=== PATIENT | female | born 1955 | race Caucasian/White ===

== ENCOUNTER → 2016-04-08 | Outpatient (REF) | payer OTHER | LOC: M SFHCWAGY 13:09 | PROVIDERS: ATTEND Nurse Practitioner Women's Health | DX: Z12.4 Encounter for screening for malignant neoplasm of cervix (principal) ==

== ENCOUNTER → 2016-04-08 | Outpatient (CLI) | payer OTHER ==
--- NOTE | 2016-04-08 13:50 | REPMRS ---
Patient History The patient states she had a clinical breast exam in 03/2016. Patient is postmenopausal. No known family history of cancer. Digital Woman Screen Mammo: April 08, 2016 - Exam #: [id number] Bilateral CC and MLO view(s) were taken. Technologist: Krista Alfaro, Technologist Prior study comparison: April 07, 2015, digital woman screen mammo performed at [facility]. May 15, 2013, digital woman screen mammo performed at [facility]. April 13, 2010, bilateral bilat screen digital mammo performed at [facility]. FINDINGS: The breast tissue is almost entirely fat. There has been no change in the appearance of the mammogram from the prior studies. There is no interval development of dominant mass, architectural distortion, or clustered microcalcification typical of malignancy. ASSESSMENT: BI-RADS/ACR category 1 mammogram. Negative. Recommendation Routine screening mammogram of both breasts in 1 year (for women over age 40). This mammogram was interpreted with the aid of an FDA-approved computer-aided dectection system. Electronically Signed By: Feroz España MD 04/08/16 [id number]
== END ==
LOC: M WHC 13:00
PROVIDERS: ATTEND Nurse Practitioner Women's Health
DX: Z12.31 Encounter for screening mammogram for malignant neoplasm of breast (principal)

== ENCOUNTER → 2017-04-11 | Outpatient (REF) | payer OTHER | LOC: M SFHCWAGY 13:22 | DX: Z12.4 Encounter for screening for malignant neoplasm of cervix (principal) ==

== ENCOUNTER → 2017-04-11 | Outpatient (CLI) | payer OTHER | LOC: M WHC 13:05 | DX: Z12.31 Encounter for screening mammogram for malignant neoplasm of breast (principal) | CPT/HCPCS: 77067 ==

== ENCOUNTER → 2017-09-29 | Outpatient (CLI) | payer OTHER | LOC: M EKG 14:43 | DX: Z01.818 Encounter for other preprocedural examination (principal); E66.01 Morbid (severe) obesity due to excess calories; I10 Essential (primary) hypertension; K21.9 Gastro-esophageal reflux disease without esophagitis; F41.9 Anxiety disorder, unspecified | CPT/HCPCS: 93005 ==

== ENCOUNTER → 2017-10-09 | Outpatient (REF) | payer OTHER | LOC: M WUC 12:21 | DX: N39.0 Urinary tract infection, site not specified (principal) ==

== ENCOUNTER → 2018-06-06 | Outpatient (CLI) | payer OTHER ==
--- NOTE | 2018-06-06 14:38 | REPMRS ---
Patient History The patient states she had a clinical breast exam in 05/2018. No known family history of cancer. 3D TOMOSYNTHESIS WAS PERFORMED. Digital Woman Screen Mammo: June 06, 2018 - Exam #: [id number] Bilateral CC and MLO view(s) were taken. Technologist: Keysha Sampson, Technologist Prior study comparison: April 11, 2017, digital woman screen mammo performed at [facility]. April 08, 2016, digital woman screen mammo performed at [facility]. FINDINGS: There are scattered fibroglandular densities. There has been no change in the appearance of the mammogram from the prior studies. There is a mild amount of residual fibroglandular tissue which is fairly symmetric. There is no interval development of dominant mass, architectural distortion, or clustered microcalcification suggestive of malignancy. Assessment: BI-RADS/ACR category 1 mammogram. Negative Mammogram. Recommendation Routine screening mammogram in 1 year (for women over age 40). This mammogram was interpreted with the aid of an FDA-approved computer-aided dectection system. Electronically Signed By: Gonzales Phan MD 06/06/18 [id number]
== END ==
LOC: M WHC 13:20
PROVIDERS: ATTEND Nurse Practitioner Women's Health
DX: Z12.31 Encounter for screening mammogram for malignant neoplasm of breast (principal)

== ENCOUNTER → 2018-11-13 | Outpatient (CLI) | payer OTHER ==
--- NOTE | 2018-11-13 08:50 | REP ---
Clinical: Abnormal liver function tests. Technique: Real time perez scale ultrasound examination using curved array transducer. Findings: Liver and visualized pancreas are normal in contour, size, echogenicity without focal hepatic or pancreatic lesion identified. Evidence of prior cholecystectomy. No biliary ductal dilatation is appreciated and the common bile duct measures 6 mm diameter. The right kidney is normal in reniform shape without hydronephrosis and measures 9.7 x 4.1 x 3.6 cm. No ascites. Impression: Evidence for prior cholecystectomy Otherwise normal right upper quadrant ultrasound. Electronically Signed by Ever Dean MD 11/13/2018 08:41 A
== END ==
LOC: M RAD 07:28
PROVIDERS: ATTEND Nurse Practitioner Psychiatric/Mental Health
DX: E66.09 Other obesity due to excess calories (principal)

== ENCOUNTER → 2018-11-16 | Outpatient (REF) | payer OTHER | LOC: M LAB REF 13:22 | PROVIDERS: ATTEND Ophthalmology | DX: H02.826 Cysts of left eye, unspecified eyelid (principal) ==

== ENCOUNTER → 2019-05-08 | Outpatient (REF) | payer OTHER | LOC: M LAB REF 10:46 | PROVIDERS: ATTEND Dermatology | DX: D49.2 Neoplasm of unspecified behavior of bone, soft tissue, and skin (principal) ==

== ENCOUNTER → 2019-08-08 | Outpatient (REF) | payer OTHER | END | disposition home or self-care (01) | LOC: M LAB REF 08:32 | PROVIDERS: ATTEND Dermatology | DX: D22.71 Melanocytic nevi of right lower limb, including hip (principal) ==

== ENCOUNTER → 2019-10-21 | Outpatient (REF) | payer OTHER | LOC: M LAB REF 12:09 | PROVIDERS: ATTEND Dermatology | DX: D22.5 Melanocytic nevi of trunk (principal) ==

== ENCOUNTER → 2019-11-21 | Outpatient (CLI) | payer OTHER ==
--- NOTE | 2019-11-21 13:40 | REPMRS ---
Patient History The patient states she has not had a clinical breast exam in over a year. No known family history of cancer. 3D TOMOSYNTHESIS WAS PERFORMED. [facility] lifetime risk for breast cancer is 6.3%. JOEL Brody. Digital Woman Screen Mammo: November 21, 2019 - Exam #: [id number] Bilateral CC and MLO view(s) were taken. Technologist: Ashli De La Rosa RT Prior study comparison: June 06, 2018, bilateral digital woman screen mammo performed at [facility] April 11, 2017, digital woman screen mammo performed at [facility] FINDINGS: There are scattered fibroglandular densities. There has been no change in the appearance of the mammogram from the prior studies. There is a mild amount of residual fibroglandular tissue which is fairly symmetric. There is no interval development of dominant mass, architectural distortion, or clustered microcalcification suggestive of malignancy. Assessment: BI-RADS/ACR category 1 mammogram. Negative Mammogram. Recommendation Routine screening mammogram in 1 year (for women over age 40). This mammogram was interpreted with the aid of an FDA-approved computer-aided dectection system. Electronically Signed By: Gonzales Phan MD 11/21/19 [id number]
== END ==
LOC: M WHC 12:28
PROVIDERS: ATTEND Nurse Practitioner Women's Health
DX: Z12.31 Encounter for screening mammogram for malignant neoplasm of breast (principal)

== ENCOUNTER 2021-04-09 20:49 | Inpatient (IN) | payer OTHER ==
[~2021-04-09] VITALS: Ht 162.6 cm; Wt 90.9 kg
[2021-04-09] MEDS ORDERED: dexameTHASONE 20MG/5ML VIAL (J1100 PER 1MG) IV ONE (21:40)
[2021-04-09 21:43] LABS: BASO # 0.1 10^3/uL (0.0-0.2); BASO % 0.7 % (0.0-1.0); EOS % 0.3 % (0.0-3.0); HEMATOCRIT 41.5 % (36.0-47.0); HEMOGLOBIN 14.3 g/dl (12.0-15.5); LYMPH % 13.8 % (24.0-44.0); MEAN CORPUSCULAR HEMOGLOBIN 28.4 pg (27.0-33.0); MEAN CORPUSCULAR HGB CONC 34.5 g/dl (32.0-36.5); MEAN CORPUSCULAR VOLUME 82.3 fl (80.0-96.0); MONO # 0.7 10^3/uL (0.0-0.8); MONO % 9.8 % (2.0-8.0); NEUTROPHILS # 5.1 10^3/uL (1.5-8.5); NEUTROPHILS % 72.2 % (36.0-66.0); PLATELET COUNT, AUTOMATED 286 10^3/uL (150-450); RED BLOOD COUNT 5.04 10^6/uL (4.00-5.40); WHITE BLOOD COUNT 7.1 10^3/uL (4.0-10.0)
[2021-04-09 21:54] LABS: INR 0.98; PROTHROMBIN TIME 13.4 SECONDS (12.7-14.5)
[2021-04-09 21:55] LABS: PARTIAL THROMBOPLASTIN TIME 31.8 SECONDS (25.9-37.0)
[2021-04-09 21:57] LABS: D-DIMER QUANT 1684.75 ng/ml (<500)
[2021-04-09 22:13] LABS: ALBUMIN 3.4 GM/DL (3.2-5.2); BILIRUBIN,DIRECT 0.2 MG/DL (0.0-0.2); BILIRUBIN,TOTAL 0.5 MG/DL (0.2-1.0)
[2021-04-09] MEDS ORDERED: DOXE100CA PO (22:24)
[2021-04-09] MEDS ORDERED: ATEN50TA2 PO (22:24)
[2021-04-09] MEDS ORDERED: BUPR300T92 PO (22:24)
[2021-04-09] MEDS ORDERED: LISI40TA4 PO (22:24)
[2021-04-09] MEDS ORDERED: BUPR1TAB52 PO (22:24)
[2021-04-09] MEDS ORDERED: ALPR0.25 PO ×2 (22:24)
[2021-04-09] MEDS ORDERED: IPRATROPIUM 0.5MG/ALBUTEROL 2.5MG INH SOL UD 3ML (DUONEB) NEB PRN (22:25)
[2021-04-09] MEDS ORDERED: guaiFENesin ER 600 MG TAB PO PRN (22:25)
[2021-04-09] MEDS ORDERED: MED REC COMMENT (23:18)
[2021-04-09] MEDS ORDERED: HOME MED LIST COMPLETE! XX SCH (23:20)
[2021-04-10] MEDS ORDERED: METAL LOCK LOOP XX ONE (02:39)
[2021-04-10] MEDS ORDERED: REMDESIVIR 200 MG in NS 250 ML IV ONE (03:00)
[2021-04-10] MEDS ORDERED: ALPRAZolam 0.25 MG TAB PO PRN (03:40)
[2021-04-10] MEDS ORDERED: ALPRAZolam 0.5 MG TAB PO PRN (03:40)
[2021-04-10] MEDS ORDERED: SODIUM CHLORIDE 0.9% INJ 10 ML SYR IV ONE (05:00)
[2021-04-10 05:15] LABS: CALCIUM LEVEL 8.4 MG/DL (8.8-10.2); CREATININE FOR GFR 1.41 MG/DL (0.55-1.30); POTASSIUM SERUM 3.9 MEQ/L (3.5-5.1)
[2021-04-10] MEDS ORDERED: NS 1,000 ML IV SCH (05:45)
[2021-04-10 08:04] LABS: BASO % 0.5 % (0.0-1.0); HEMATOCRIT 38.7 % (36.0-47.0); HEMOGLOBIN 13.4 g/dl (12.0-15.5); LYMPH # 0.7 10^3/uL (1.5-5.0); LYMPH % 16.8 % (24.0-44.0); MEAN CORPUSCULAR HEMOGLOBIN 28.5 pg (27.0-33.0); MEAN CORPUSCULAR HGB CONC 34.6 g/dl (32.0-36.5); MEAN CORPUSCULAR VOLUME 82.2 fl (80.0-96.0); MONO # 0.2 10^3/uL (0.0-0.8); MONO % 3.9 % (2.0-8.0); NEUTROPHILS # 3.3 10^3/uL (1.5-8.5); NEUTROPHILS % 74.7 % (36.0-66.0); PLATELET COUNT, AUTOMATED 272 10^3/uL (150-450); RED BLOOD COUNT 4.71 10^6/uL (4.00-5.40); WHITE BLOOD COUNT 4.4 10^3/uL (4.0-10.0)
[2021-04-10 08:29] LABS: CALCIUM LEVEL 8.5 MG/DL (8.8-10.2); CREATININE FOR GFR 1.01 MG/DL (0.55-1.30); GLOMERULAR FILTRATION RATE 58.7 (>45); MAGNESIUM LEVEL 2.5 MG/DL (1.8-2.4); POTASSIUM SERUM 4.4 MEQ/L (3.5-5.1)
[2021-04-10] MEDS: lisinopriL 40MG TAB PO SCH (08:55)
[2021-04-10] MEDS: buPROPion **XL** TABLET 150MG (WELLBUTRIN XL) PO SCH (08:55)
[2021-04-10] MEDS: ENOXAPARIN 40MG/0.4ML SYRINGE (J1650 PER 10MG) SC SCH (08:56)
[2021-04-10] MEDS: dexameTHASONE 4 MG/ML 1ML VIAL (J1100 PER 1MG) IV SCH (08:56)
[2021-04-10] MEDS: atenoloL 50 MG TAB PO SCH (08:56)
[2021-04-10 14:48] VITALS: BP 95/64
[2021-04-10 20:00] VITALS: BP 96/60; O2SAT 93
[2021-04-10] MEDS ORDERED: buPROPion (WELLBUTRIN SR) 100 MG SR TAB PO SCH (21:00)
[2021-04-11] VITALS: O2SAT 92
[2021-04-11 05:00] VITALS: BP 128/68
[2021-04-11] MEDS ORDERED: REMDESIVIR 100 MG in NS 250 ML IV SCH (06:00)
[2021-04-11] MEDS ORDERED: SODIUM CHLORIDE 0.9% INJ 10 ML SYR IV SCH (07:00)
[2021-04-11 07:18] LABS: BASO % 0.3 % (0.0-1.0); EOS % 0.2 % (0.0-3.0); HEMATOCRIT 38.5 % (36.0-47.0); HEMOGLOBIN 13.2 g/dl (12.0-15.5); LYMPH # 1.1 10^3/uL (1.5-5.0); LYMPH % 7.2 % (24.0-44.0); MEAN CORPUSCULAR HEMOGLOBIN 28.6 pg (27.0-33.0); MEAN CORPUSCULAR HGB CONC 34.3 g/dl (32.0-36.5); MEAN CORPUSCULAR VOLUME 83.3 fl (80.0-96.0); MONO # 0.8 10^3/uL (0.0-0.8); MONO % 5.4 % (2.0-8.0); NEUTROPHILS # 12.9 10^3/uL (1.5-8.5); NEUTROPHILS % 85.1 % (36.0-66.0); PLATELET COUNT, AUTOMATED 302 10^3/uL (150-450); RED BLOOD COUNT 4.62 10^6/uL (4.00-5.40); WHITE BLOOD COUNT 15.1 10^3/uL (4.0-10.0)
[2021-04-11 07:31] LABS: INR 1.02; PROTHROMBIN TIME 13.8 SECONDS (12.7-14.5)
[2021-04-11 07:43] LABS: ALBUMIN 2.8 GM/DL (3.2-5.2); BILIRUBIN,DIRECT 0.1 MG/DL (0.0-0.2); BILIRUBIN,TOTAL 0.3 MG/DL (0.2-1.0); CALCIUM LEVEL 8.5 MG/DL (8.8-10.2); CREATININE FOR GFR 1.17 MG/DL (0.55-1.30); GLOMERULAR FILTRATION RATE 49.6 (>45); MAGNESIUM LEVEL 2.5 MG/DL (1.8-2.4); POTASSIUM SERUM 3.8 MEQ/L (3.5-5.1); TOTAL PROTEIN 6.5 GM/DL (6.4-8.2)
[2021-04-11 09:00] VITALS: BP 92/58
[2021-04-11] MEDS: lisinopriL 40MG TAB PO SCH (09:00)
[2021-04-11] MEDS: atenoloL 50 MG TAB PO SCH (09:00)
[2021-04-11] MEDS: ENOXAPARIN 40MG/0.4ML SYRINGE (J1650 PER 10MG) SC SCH (09:01)
[2021-04-11] MEDS: buPROPion **XL** TABLET 150MG (WELLBUTRIN XL) PO SCH (09:01)
[2021-04-11] MEDS: dexameTHASONE 4 MG/ML 1ML VIAL (J1100 PER 1MG) IV SCH (09:02)
[2021-04-11] MEDS ORDERED: DECA4TAB PO (11:27)
== END 2021-04-11 12:34 | disposition home or self-care (01) | DRG 137 ==
LOC: M ED 20:49 → M ED INP 22:25 → ENRESERV 04-10 13:47 → M 4MAIN 04-10 14:30
PROVIDERS: ADMIT Internal Medicine; ATTEND Family Medicine
PROC: 3E0333Z Introduction of Anti-inflammatory into Peripheral Vein, Percutaneous Approach (ICD-10-PCS; principal; 2021-04-09)
DX: U07.1 COVID-19 (principal); J12.82 Pneumonia due to coronavirus disease 2019; I10 Essential (primary) hypertension; F32.A Depression, unspecified; F41.9 Anxiety disorder, unspecified; Z98.84 Bariatric surgery status; Z79.899 Other long term (current) drug therapy; Z53.29 Procedure and treatment not carried out because of patient's decision for other reasons